=== PATIENT | male | born 1955 | race Caucasian/White ===

== ENCOUNTER 2024-06-07 07:06 | Day surgery (SDC) | payer BC, OTHER ==
[2024-06-04 15:53] LABS: Absolute Eosinophils 0.1 K/uL (0-0.5); Absolute Lymphocytes (CBC) 1.1 K/uL (0.7-4.9); Absolute Monocytes 0.5 K/uL (0.1-1.3); Absolute Neutrophil 4.8 K/uL (1.8-8.0); Basophils % 0.2 % (0-1.3); Eosinophils % 1.3 % (0-4.4); Hematocrit 41.5 % (39.6-49.0); Hemoglobin 13.8 g/dL (13.6-17.9); Lymphocytes % 16.7 % (15.3-44.8); MCH 29.2 pg (27.0-35.0); MCHC 33.2 g/dL (32.0-36.0); MCV 87.9 fL (80-100); MPV 7.5 fL (7.6-11.3); Monocytes % 7.7 % (3.3-12.3); Neutrophils % 74.1 % (41.7-73.7); Nucleated Red Blood Cells % 0.2 % (0-0); Platelets 253 thou/uL (152-406); RBC Red Blood Cell Count 4.72 M/uL (4.33-5.43); Red Cell Distribution Width 14.4 % (12.1-15.2)
[2024-06-04 16:05] LABS: Anion Gap 4.4 mEq/L (5.0-15.0); Potassium 4.4 mEq/L (3.5-5.1)
--- NOTE | 2024-06-06 11:56 | EKG ---
Test Date: 2024-06-04 Test Time: 15:35:25 Client Associate: MERARI MEASUREMENT RESULTS: Intervals: Rate: 61 CT: 178 QRSD: 98 QT: 410 QTc: 412 Manning: P: 63 CT: 178 QRS: 65 T: 70 INTERPRETIVE STATEMENTS: Normal sinus rhythm Normal ECG No previous ECG available for comparison Electronically Signed On 06-06-24 11:55:13 DIRECTOR OF MARKET ANALYSIS by Paul Pryor
[2024-06-07] MEDS: Ringers Lactate 1,000 ML IV ONE (07:35)
[2024-06-07] MEDS ORDERED: LIDOCAINE 1% MPF 5 ML VIAL ONE (08:00)
[2024-06-07] MEDS ORDERED: MIDAZOLAM HCL 2 MG/2 ML INJ ONE (08:01)
[2024-06-07] MEDS ORDERED: FENTANYL CITR 100 MCG/2 ML ONE (08:01)
[2024-06-07] MEDS ORDERED: propofoL 200 MG/20 ML VIAL IV ONE (08:01)
[2024-06-07] MEDS: LIDOCAINE HCL/EPINEPHRINE 20 ML MDV ONE (09:04)
[2024-06-07] MEDS ORDERED: KETOROLAC 30 MG/ML INJ ONE (09:24)
--- NOTE | 2024-06-07 10:22 | P.OP ---
Sas Architect: NONE,NONE Preoperative diagnosis: nasal basal cell carcinoma; left ear melanoma Postoperative diagnosis: same Primary procedure: partial auriculectomy, left with primary closure Secondary procedure: nasal local rotational tissue rearrangement/bilobed flap Other procedure(s): Excision malignant cutaneous neoplasm, nose Anesthesia: general Estimated blood loss: 10ml Specimen: nasal tip (FS), left ear (permanent section) Findings: negative margins on nose, 1.1cm defect Operative Technique: Patient was brought to the operating room placed under general anesthesia via LMA. The nasal tip and left ear were injected with local anesthetic and prepped with Betadine draped in a sterile fashion. The nasal tip was examined first. There was gross evidence of healed biopsy site with adjacent raised area of tissue suspicious for persistent gross disease. A 3 mm margin was designed around the gross lesion and a 15 blade scalpel was used to incise through the skin and subcutaneous tissue. The specimen was elevated sharply from underlying tissues and a suture was placed at the superiormost aspect indicating 12:00. The specimen was sent to pathology for frozen section analysis. Bovie cautery was applied to the skin edges and wound base for control of hemostasis. A wet [place] was applied to the site and attention was turned to the left ear A new 15 blade was selected and the left ear was examined. There was a darkly pigmented area of skin on the inferior aspect of the helix which also showed healed biopsy changes and an irregular border. A 1 cm peripheral margin was drawn around the visible lesion. A skin incision was made using 15 blade scalpel through the skin and subcutaneous tissues for complete extirpation of the lesion with a generous margin. On the medial aspect a small amount of cartilage was removed as part of the specimen to ensure adequate deep margin. The specimen was marked with a suture at the superiormost aspect of the specimen and it was sent to pathology for permanent section analysis only. The surrounding skin was examined and skin edges were cauterized to control bleeding. The residual portion of the earlobe was rotated superiorly for direct primary closure. A small Burow's triangle was removed anteriorly just below the antitragus. Vicryl sutures were used to approximate the tissues and the skin was closed in a running fashion using 5-0 fast absorbing gut suture. Intraoperative consultation with the pathologist confirmed residual basal cell carcinoma of the tip of the nose with negative peripheral and deep margins. Upon return to the operating room the wound was examined. A 1.1 x 1 cm full skin thickness defect was noted on the nasal tip and reconstruction options were considered. Due to the overall thickness of the patient's skin the best option was a local tissue rearrangement. A superiorly based bilobed flap was designed on the left nose. Skin incisions were made using a 15 blade scalpel and the surrounding tissues were sharply elevated with scissors and Bovie electrocautery. After adequate dissection was made to allow rotation of the flap, the skin was rotated from the left side of the nose onto the tip of the nose and secured with Vicryl suture. A small Burow's triangle was removed from the right aspect of the wound to improve cosmesis of the closure. The skin incisions were then closed using 5-0 fast absorbing gut in a simple running fashion. After completion of the procedures, the patient was returned to care of anesthesia for awakening extubation in the operating room which proceeded without complication. Complications: None Implants: none Fluids & blood products: see anesthesia record Transferred to: Recovery Room Condition: Good
[2024-06-07 10:30] VITALS: O2SAT 100
[2024-06-07 14:14] VITALS: BP 130/68
[2024-06-07 14:16] VITALS: TEMP 97
== END 2024-06-07 11:50 | disposition home or self-care (01) ==
LOC: OR 07:06
PROVIDERS: ATTEND Otolaryngology
PROC: 0HX1XZZ Transfer Face Skin, External Approach (ICD-10-PCS; 2024-06-07)
PROC: 09B1XZZ Excision of Left External Ear, External Approach (ICD-10-PCS; principal; 2024-06-07 08:45)
DX: C43.22 Malignant melanoma of left ear and external auricular canal (principal); C44.311 Basal cell carcinoma of skin of nose; L90.5 Scar conditions and fibrosis of skin
CPT/HCPCS: 69110; 14060; 93005; 85025; 80048; 36415; 88331; 88332; 88305; J2704; J2003; J2250; J3010; J7120